=== PATIENT | female | born 1965 | race Caucasian/White ===

== ENCOUNTER 2023-07-27 09:49 | Outpatient (CLI) | payer MEDICAID, SELFPAY | END 2023-07-27 09:50 | disposition home or self-care (01) | LOC: NFLDUCREF 09:50 | PROVIDERS: PCP Internal Medicine; Visit Provider Physician Assistant | DX: R21 Rash and other nonspecific skin eruption (principal); W57.XXXA Bitten or stung by nonvenomous insect and other nonvenomous arthropods, initial encounter | CPT/HCPCS: 86618 ==

== ENCOUNTER 2023-11-27 18:30 | Outpatient (CLI) | payer MEDICAID, SELFPAY | END 2023-11-27 18:31 | disposition home or self-care (01) | LOC: NFLDREF 11-29 11:27 | PROVIDERS: PCP Internal Medicine; Referring Provider Internal Medicine; Visit Provider Physician Assistant | DX: N39.0 Urinary tract infection, site not specified (principal) | CPT/HCPCS: 87086; 87186 ==

== ENCOUNTER 2024-06-18 17:41 | Outpatient (CLI) | payer OTHER, SELFPAY | END 2024-06-18 17:42 | disposition home or self-care (01) | LOC: NFLDREF 06-20 14:16 | PROVIDERS: PCP Internal Medicine; Referring Provider Internal Medicine; Visit Provider Physician Assistant | DX: R30.0 Dysuria (principal) | CPT/HCPCS: 87086 ==